=== PATIENT | male | born 2000 | race Two or more races ===

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

== ENCOUNTER 2020-05-28 21:39 | Emergency (ER) | payer MEDICAID ==
[~2020-05-28] VITALS: Ht 182.9 cm; Wt 77.1 kg
[2020-05-28 23:56] VITALS: BP 112/59
== END 2020-05-29 00:02 | disposition home or self-care (01) ==
LOC: ER 21:39
DX: S62.340A Nondisplaced fracture of base of second metacarpal bone, right hand, initial encounter for closed fracture (principal); V49.9XXA Car occupant (driver) (passenger) injured in unspecified traffic accident, initial encounter; Y93.89 Activity, other specified; Y92.89 Other specified places as the place of occurrence of the external cause; Y99.8 Other external cause status
CPT/HCPCS: 12001; 29125; 70450; 73110; 73130

== ENCOUNTER 2020-06-06 11:48 | Emergency (ER) | payer MEDICAID ==
[~2020-06-06] VITALS: Ht 182.9 cm; Wt 77.1 kg
[2020-06-06 11:55] VITALS: BP 106/64
== END 2020-06-06 13:36 | disposition home or self-care (01) ==
LOC: ER 11:48
DX: S01.01XD Laceration without foreign body of scalp, subsequent encounter (principal); X58.XXXD Exposure to other specified factors, subsequent encounter

== ENCOUNTER 2021-05-24 16:01 | Emergency (ER) | payer MEDICAID, OTHER ==
[~2021-05-24] VITALS: Ht 182.9 cm; Wt 90.7 kg
[2021-05-24 16:06] VITALS: BP 122/74
[2021-05-24] MEDS ORDERED: METH750T22 PO (17:31)
[2021-05-24] MEDS ORDERED: IBUP800T27 PO (17:31)
== END 2021-05-24 17:43 | disposition home or self-care (01) ==
LOC: ER 16:01
DX: S16.1XXA Strain of muscle, fascia and tendon at neck level, initial encounter (principal); S39.012A Strain of muscle, fascia and tendon of lower back, initial encounter; Z79.1 Long term (current) use of non-steroidal anti-inflammatories (NSAID); Z79.899 Other long term (current) drug therapy; V43.52XA Car driver injured in collision with other type car in traffic accident, initial encounter; Y93.89 Activity, other specified; Y92.89 Other specified places as the place of occurrence of the external cause; Y99.8 Other external cause status
CPT/HCPCS: 72040; 72100; 73562